=== PATIENT | female | born 1995 | race Caucasian/White ===

== ENCOUNTER 2024-06-13 12:30 | Emergency (ER) | payer SELFPAY ==
[2024-06-13 13:18] LABS: APPEARANCE,URINE CLEAR (Clear); BILIRUBIN,URINE NEGATIVE (Negative); COLOR,URINE YELLOW (Yellow); GLUCOSE,URINE NEGATIVE (Negative); KETONES,URINE NEGATIVE (Negative); LEUKOCYTE ESTERASE,URINE 2+ (Negative); NITRITE,URINE NEGATIVE (Negative); OCCULT BLOOD,URINE TRACE-INTACT (Negative); PROTEIN,URINE NEGATIVE (Negative); UROBILINOGEN,URINE 0.2 (0.2-1.0)
[2024-06-13 13:30] LABS: EPITHELIAL CELLS,URINE 0-5 /hpf (0-5); RBC,URINE 0-5 /hpf (0-5)
[2024-06-13 13:31] LABS: BACTERIA,URINE FEW /hpf (FEW); MUCUS,URINE FEW /hpf (FEW)
[2024-06-13] MEDS: Magnesium Citrate Solution 296 ML Bottle PO ONE (14:18)
[2024-06-13] MEDS: cefTRIAXone 2 GM, Lidocaine 1% 4.2 ML IM ONE (14:18)
== END 2024-06-13 14:48 | disposition home or self-care (01) ==
LOC: JD.ED 12:30
DX: K59.00 Constipation, unspecified (principal); N30.01 Acute cystitis with hematuria; Z79.899 Other long term (current) drug therapy
CPT/HCPCS: 74018; 81001; 81025; 87086; 96372; 99283; A9270; J0696; J2003